=== PATIENT | female | born 1980 | race Two or more races ===

== ENCOUNTER 2016-06-10 23:06 | Emergency (ER) | payer SELFPAY ==
[2016-06-10 23:36] VITALS: BP 106/70
[2016-06-10] MEDS ORDERED: Cephalexin 250 MG Cap PO ONE (23:57)
--- NOTE | 2016-06-11 01:52 | ER ---
DATE SEEN: 06/10/2016 TIME SEEN: The patient was seen at 0340 hours. CHIEF COMPLAINT: Abdominal discomfort. HISTORY OF PRESENT ILLNESS: This 35-year-old woman noted she has onset of right flank discomfort, suprapubic discomfort without fever on 06/09/2016. No associated nausea, vomiting, diarrhea, constipation, fever, uterine tenderness, pelvic pain, dyspareunia, vaginal discharge, or thoughts of having sexually transmitted disease. Denies vaginal discharge. She is a 2, para 2-0-0- 2. Last menstrual period a month ago. Has a "T" IUD in place. The patient is single and not . She is here with her children. REVIEW OF SYSTEMS: Otherwise, negative. PHYSICAL EXAMINATION: VITAL SIGNS: Blood pressure 106/70, heart rate 82 and regular, respirations 20, oxygen saturation 99%, temperature is 36.3 degrees centigrade. The patient is in discomfort. HEENT: PERRLA intact. Pharynx without abnormality. LUNGS: Clear to auscultation. HEART: S1, S2. No murmur. Regular rate and rhythm. ABDOMEN: Soft. Moderate suprapubic discomfort. No guarding or rebound. Pelvic not performed. On her mons and hair follicle, there is an abscess which is very tender. It is slightly erythematous and raised. EXTREMITIES: Without abnormality. LABORATORY DATA: Urinalysis is normal. ASSESSMENT: Mons abscess. PLAN: Treat with Keflex 500 mg t.i.d. plus yogurt daily for 10 days. Follow up with doctor in 7 to 14 days. Hot moist packs at least 4 times a day, preferably every 1 to 2 hours to accelerate the resolution of the infection. DIFFERENTIAL DIAGNOSIS: Doubt donovanosis or Haemophilus ducreyi or bubo. Doubt sexually transmitted disease. /[id number] KENRICK/ANTONIO
== END 2016-06-11 00:05 | disposition home or self-care (01) ==
LOC: FB.ED 23:06
DX: N76.4 Abscess of vulva (principal)
CPT/HCPCS: 81001; 99283; A9270

== ENCOUNTER 2016-09-06 23:22 | Emergency (ER) | payer BC ==
[2016-09-07] MEDS ORDERED: Metoclopramide 10 MG/2 ML SDV IM ONE (00:19)
[2016-09-07] MEDS ORDERED: HYDROmorphone 2 MG/ML SDV IM ONE (00:19)
[2016-09-07 01:03] VITALS: BP 111/68
--- NOTE | 2016-09-12 09:43 | ER ---
DATE SEEN: 09/06/2016 TIME SEEN: The patient was seen at 0040 hours. HISTORY OF PRESENT ILLNESS: This 35-year-old, 4, para 4-0-0-4 single mother comes in with another friend this evening because she has pain from her fibroids. Surgery is scheduled for 09/12/2016, six days from now. The pain is so extensive this evening she could not tolerate it. Consequently, she came to the hospital for further care and intervention. She has been prescribed hydrocodone, but the hydrocodone, one tablet, causes nausea, makes her dizzy, and lightheaded, and she dislikes the feeling she has with it. She rates the pain at 8/10 intensity. She denies fever, vaginal bleeding, dysuria, back pain. Most of the pain is suprapubic. PAST MEDICAL HISTORY: No diabetes, heart disease, high blood pressure, asthma, or other serious illness. The patient denies headache, nausea, vomiting, or diarrhea. No other serious illnesses. REVIEW OF SYSTEMS: Negative except for noted above. PHYSICAL EXAMINATION: VITAL SIGNS: Blood pressure 105/75, heart rate 77, respirations 16, oxygen saturation 100%, temperature is 37.3 degrees centigrade. GENERAL: The patient is in distress. She has had interpreting done by her friend. HEENT: PERRLA intact. Pharynx without abnormality. NECK: Supple. No thyromegaly. LUNGS: Clear to auscultation. HEART: S1 and S2. No murmur. ABDOMEN: Soft. Mild suprapubic discomfort. No masses palpable. No CVA or percussion tenderness. PELVIC: Exam not performed. The patient is not experiencing vaginal bleeding. EXTREMITIES: Lower extremities without abnormality. Deep tendon reflexes normoactive. NEUROLOGIC: Cranial nerves II through XII intact. ASSESSMENT: Intrauterine fibroid pain. Neuropathic pain (pressure on nerve fibers). Also, a component of nociceptive pain (pain on tissue endings). PLAN: 1. Take half a tablet of hydrocodone for pain. If this does not work, then consider initiating 50 mg of Lyrica b.i.d. and increase to t.i.d. as needed. The patient has been informed that this is very expensive medicine. 2. Instead of using Zofran, change to Reglan. The Reglan has a dopamine antagonist which also works as an analgesic and antinausea medicine. Forego using Zofran. 3. Follow up with doctor for surgery as noted. She was advised not to take tramadol as it could affect her preoperative status and platelets. No laboratory tests were performed. /[id number] KENRICK/HARDIKL
== END 2016-09-07 01:05 | disposition home or self-care (01) ==
LOC: FB.ED 23:22
DX: D25.9 Leiomyoma of uterus, unspecified (principal); M79.2 Neuralgia and neuritis, unspecified
CPT/HCPCS: 96372; 99283; J1170; J2765

== ENCOUNTER 2016-10-01 00:16 | Emergency (ER) | payer BC ==
[2016-10-01] MEDS ORDERED: HYDROmorphone 2 MG/ML SDV IVPUSH ONE (00:30)
[2016-10-01] MEDS: Sodium Chloride 0.9% 10 ML Syringe FLUSH PRN ×3 (00:40→02:04)
[2016-10-01] MEDS ORDERED: Iopamidol 755 Mg/ML 100 ML Bottle IV SCH (01:00)
[2016-10-01] MEDS ORDERED: Ketorolac 30 MG/ML SDV IVPUSH ONE (01:55)
--- NOTE | 2016-10-01 02:01 | EDM.PDOC ---
ED HPI GENERAL MEDICAL PROBLEM - General Chief Complaint: Abdominal Pain Stated Complaint: ABD PAIN Time Seen by Provider: 10/01/16 01:35 Source of Information: Reports: Patient History Limitations: Reports: No Limitations - History of Present Illness INITIAL COMMENTS - FREE TEXT/NARRATIVE: 35 yo female had a hysterectomy 2 weeks ago in [place]. Tonight about [place] she fell in the shower and now complains of 10/10 abdominal pain. No postural dizziness. No recent fevers. Onset: Today Onset Date: 10/01/16 Onset Time: 00:00 Duration: Minutes: Location: Reports: Abdomen Quality: Reports: Sharp Severity: Severe Improves with: Reports: None Worsens with: Reports: None Context: Reports: Other (surgery 2 weeks ago, fell tonight.) Associated Symptoms: Reports: No Other Symptoms Treatments APPLICATION DESIGNER: Reports: Other (see below) (none) Lower Abdomen Pain Score (Numeric/FACES): 10 - Related Data Allergies Allergy/AdvReac Type Severity Reaction Status Date / Time No Known Allergies Allergy Verified 10/01/16 00:31 Home Meds: Home Meds . 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, Other OB/BYN History: scheduled for surgery in [place] - Infectious Disease History Infectious Disease History: Reports: Hepatitis C - Past Surgical History Female Surgical History: Reports: Hysterectomy Social & Family History - Tobacco Use Smoking Status *Q: Never Smoker Second Hand Smoke Exposure: No - Caffeine Use Caffeine Use: Reports: None - Recreational Drug Use Recreational Drug Use: No ED ROS GENERAL - Review of Systems Review Of Systems: See Below Constitutional: Reports: No Symptoms HEENT: Reports: No Symptoms Respiratory: Reports: No Symptoms Cardiovascular: Reports: No Symptoms GI/Abdominal: Reports: Abdominal Pain : Reports: No Symptoms Musculoskeletal: Reports: No Symptoms Skin: Reports: No Symptoms Neurological: Reports: No Symptoms ED EXAM, GI/ABD - Physical Exam Exam: See Below Exam Limited By: No Limitations General Appearance: Alert, WD/WN, No Apparent Distress Eyes: Bilateral: Normal Appearance Ears: Normal External Exam, Normal Canal, Hearing Grossly Normal Nose: Normal Inspection, Normal Mucosa, No Blood Throat/Mouth: Normal Inspection, Normal Lips, Normal Voice, No Airway Compromise Head: Atraumatic, Normocephalic Neck: Normal Inspection Respiratory/Chest: No Respiratory Distress, Lungs Clear, Normal Breath Sounds, No Accessory Muscle Use Cardiovascular: Regular Rate, Rhythm, No Edema GI/Abdominal Exam: Soft, No Distention, Tender Back Exam: Normal Inspection. No: CVA Tenderness (R), CVA Tenderness (L) Extremities: Normal Inspection, Normal Range of Motion, Non-Tender, No Pedal Edema Neurological: Alert, Oriented, CN II-XII Intact, No Motor/Sensory Deficits Psychiatric: Normal Affect, Normal Mood Skin Exam: Warm, Dry, Intact, Normal Color, No Rash Lymphatic: No Adenopathy Course - Vital Signs Last Recorded V/S: Last Vital Signs Temp 36.9 C 10/01/16 00:43 Pulse 71 10/01/16 00:43 Resp 18 10/01/16 00:43 BP 109/74 10/01/16 00:43 Pulse Ox 100 10/01/16 00:43 - Orders/Labs/Meds Orders: Active Orders 24 hr Category Date Time Status Abdomen Pelvis w wo Cont [CT] Stat Exams 10/01/16 00:28 Ordered Iopamidol [Isovue-370 (76%)] Med 10/01/16 01:00 Active 100 ml IV . DIRECTED Ketorolac [Toradol] Med 10/01/16 01:55 Once 30 mg IVPUSH ONETIME ONE Sodium Chloride 0.9% [Saline Flush] Med 10/01/16 00:31 Active 10 ml FLUSH ASDIRECTED PRN Saline Lock Insert [OM.PC] Routine Oth 10/01/16 00:31 Ordered Medication Orders Iopamidol (Isovue-370 (76%)) 100 ml IV . DIRECTED [facility] Ketorolac Tromethamine (Toradol) 30 mg IVPUSH ONETIME ONE Stop: 10/01/16 01:56 Sodium Chloride (Saline Flush) 10 ml FLUSH ASDIRECTED PRN PRN Reason: Keep Vein Open Last Admin: 10/01/16 00:42 Dose: 10 ml Admin: 10/01/16 00:40 Dose: 10 ml Meds: Medications Generic Name Dose Route Start Last Admin Trade Name Freq PRN Reason Stop Dose Admin Iopamidol 100 ml 10/01/16 01:00 Isovue-370 (76%) IV . DIRECTED [facility] Ketorolac Tromethamine 30 mg 10/01/16 01:55 Toradol IVPUSH 10/01/16 01:56 ONETIME ONE Sodium Chloride 10 ml 10/01/16 00:31 10/01/16 00:42 Saline Flush FLUSH 10 ml ASDIRECTED PRN Administration Keep Vein Open Discontinued Medications Generic Name Dose Route Start Last Admin Trade Name Jonoq PRN Reason Stop Dose Admin Hydromorphone HCl 1 mg 10/01/16 00:30 10/01/16 00:38 Dilaudid IVPUSH 10/01/16 00:31 1 mg ONETIME ONE Administration - Radiology Interpretation Free Text/Narrative:: No acute findings. CT Results Date: 10/01/16 Departure - Departure Time of Disposition: 02:10 Disposition: Home, Self-Care 01 Condition: Good Clinical Impression: Postoperative generalized abdominal pain - Discharge Information Referrals: Asad Contreras MD [Primary Care Provider] - Forms: ED Department Discharge Additional Instructions: See your doctor for recheck if your pain continues. May take acetaminophen and/ or ibuprofen as needed for pain relief. - My Orders Last 24 Hours: My Active Orders 10/01/16 00:28 Abdomen Pelvis w wo Cont [CT] Stat 10/01/16 00:31 Sodium Chloride 0.9% [Saline Flush] 10 ml FLUSH ASDIRECTED PRN Saline Lock Insert [OM.PC] Routine 10/01/16 01:00 Iopamidol [Isovue-370 (76%)] 100 ml IV . DIRECTED 10/01/16 01:55 Ketorolac [Toradol] 30 mg IVPUSH ONETIME ONE - Assessment/Plan Last 24 Hours: My Active Orders 10/01/16 00:28 Abdomen Pelvis w wo Cont [CT] Stat 10/01/16 00:31 Sodium Chloride 0.9% [Saline Flush] 10 ml FLUSH ASDIRECTED PRN Saline Lock Insert [OM.PC] Routine 10/01/16 01:00 Iopamidol [Isovue-370 (76%)] 100 ml IV . DIRECTED 10/01/16 01:55 Ketorolac [Toradol] 30 mg IVPUSH ONETIME ONE
[2016-10-01 02:10] VITALS: BP 108/72
[2016-10-02] MEDS ORDERED: Iopamidol 755 Mg/ML 100 ML Bottle IV SCH ×2 (14:00→14:03)
== END 2016-10-01 02:10 | disposition home or self-care (01) ==
LOC: FB.ED 00:16
DX: G89.18 Other acute postprocedural pain (principal); R10.84 Generalized abdominal pain; Z90.710 Acquired absence of both cervix and uterus
CPT/HCPCS: 74177; 96374; 96375; 99285; J1170; J1885; J7050; Q9967; 74178

== ENCOUNTER 2016-11-11 19:45 | Emergency (ER) | payer BC ==
[2016-11-11] MEDS ORDERED: Ketorolac 60 MG/2 ML SDV IM ONE (20:39)
--- NOTE | 2016-11-11 20:50 | EDM.PDOC ---
ED HPI GENERAL MEDICAL PROBLEM - General Chief Complaint: Upper Extremity Injury/Pain Stated Complaint: PAIN ON LT HAND Time Seen by Provider: 11/11/16 19:54 Source of Information: Reports: Patient, Family History Limitations: Reports: Language Barrier - History of Present Illness INITIAL COMMENTS - FREE TEXT/NARRATIVE: 35 years old w f came to the ed due to pain at her right hand, mainly her thump. Pt has FROM. 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 No N/V/D or any other acute medical issues. 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 Left Hand Pain Score (Numeric/FACES): 10 - Related Data Allergies Allergy/AdvReac Type Severity Reaction Status Date / Time No Known Allergies Allergy Verified 11/11/16 19:53 Home Meds: Home Meds NK [No Known Home Meds] 11/11/16 [History] Past Medical History - Past Health History Medical/Surgical History: Denies 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, Other OB/BYN History: scheduled for surgery in [place] - Infectious Disease History Infectious Disease History: Reports: Hepatitis C - Past Surgical History Female Surgical History: Reports: Hysterectomy Social & Family History - Tobacco Use Smoking Status *Q: Never Smoker Second Hand Smoke Exposure: No - Caffeine Use Caffeine Use: Reports: None - Recreational Drug Use Recreational Drug Use: No Review of Systems - Review of Systems Review Of Systems: See Below Constitutional: Reports: No Symptoms Eyes: Reports: No Symptoms Ears: Reports: No Symptoms Nose: Reports: No Symptoms Mouth/Throat: Reports: No Symptoms Respiratory: Reports: No Symptoms Cardiovascular: Reports: No Symptoms GI/Abdominal: Reports: No Symptoms Genitourinary: Reports: No Symptoms Musculoskeletal: Reports: Hand Pain Skin: Reports: No Symptoms Neurological: Reports: No Symptoms Psychiatric: Reports: No Symptoms ED EXAM, GENERAL - Physical Exam Exam: See Below Exam Limited By: No Limitations General Appearance: Alert, WD/WN, Mild Distress Eye Exam: Bilateral Eye: Normal Inspection Ears: Normal External Exam Ear Exam: Bilateral Ear: Auricle Normal Nose: Normal Inspection Throat/Mouth: Normal Inspection Head: Atraumatic, Normocephalic Neck: Normal Inspection, Supple Respiratory/Chest: No Respiratory Distress, Lungs Clear Cardiovascular: Normal Peripheral Pulses, Regular Rate, Rhythm, No Edema, No JVD , No Murmur, No Rub Peripheral Pulses: 1+: Femoral (L), Femoral (R) GI/Abdominal: Normal Bowel Sounds (Female) Exam: Deferred Rectal (Female) Exam: Deferred Back Exam: Normal Inspection, Full Range of Motion Extremities: Normal Inspection, Normal Range of Motion, Other (tender left hand , FROM) Course - Vital Signs Text/Narrative:: 35 years old w f came to the ed due to pain at her right hand, mainly her thump. Pt has FROM. 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 No N/V/D or any other acute medical issues. PE: Tender right hypertenar, FROM Impression: Muscular pain r hand Tx: Ice, Toradol Reexam: Improved Plan: D/C with instructions Last Recorded V/S: Last Vital Signs Temp 36.6 C 11/11/16 19:54 Pulse 73 11/11/16 21:05 Resp 18 11/11/16 19:54 BP 105/75 11/11/16 21:05 Pulse Ox 100 11/11/16 19:54 - Orders/Labs/Meds Orders: Active Orders 24 hr Category Date Time Status Cooling Warming Measures [RC] ASDIRECTED Care 11/11/16 20:39 Active Ice Bag [Ice Therapy] [OM.PC] Routine Oth 11/11/16 20:39 Ordered Meds: Medications Discontinued Medications Generic Name Dose Route Start Last Admin Trade Name Freq PRN Reason Stop Dose Admin Ketorolac Tromethamine 60 mg 11/11/16 20:39 11/11/16 20:42 Toradol IM 11/11/16 20:40 60 mg ONETIME ONE Administration Departure - Departure Time of Disposition: 20:50 Disposition: Home, Self-Care 01 Condition: Good Clinical Impression: Sprain of hand, left Qualifiers: Encounter type: initial encounter Qualified Code(s): S63.92XA - Sprain of unspecified part of left wrist and hand, initial encounter Insomnia Qualifiers: Insomnia type: unspecified Qualified Code(s): G47.00 - Insomnia, unspecified - Discharge Information Referrals: Asad Contreras MD [Primary Care Provider] - Forms: ED Department Discharge Additional Instructions: Please take 600mg of motrin every 6-8 hours with food, please apply ice to your left hand every 20 min off/on, please change job situation if needed, please take benadryl for sleep induction, please f/u, please come back if your symptoms get worse acutely - My Orders Last 24 Hours: My Active Orders 11/11/16 20:39 Cooling Warming Measures [RC] ASDIRECTED Ice Bag [Ice Therapy] [OM.PC] Routine - Assessment/Plan Last 24 Hours: My Active Orders 11/11/16 20:39 Cooling Warming Measures [RC] ASDIRECTED Ice Bag [Ice Therapy] [OM.PC] Routine
[2016-11-11 21:10] VITALS: BP 105/75
== END 2016-11-11 21:05 | disposition home or self-care (01) ==
LOC: FB.ED 19:45
DX: S63.92XA Sprain of unspecified part of left wrist and hand, initial encounter (principal); G47.00 Insomnia, unspecified; Z86.19 Personal history of other infectious and parasitic diseases; Z90.710 Acquired absence of both cervix and uterus; X58.XXXA Exposure to other specified factors, initial encounter
CPT/HCPCS: 96372; 99282; J1885

== ENCOUNTER 2016-11-27 19:28 | Emergency (ER) | payer BC ==
[2016-11-27] MEDS ORDERED: Sodium Chloride 0.9% 1,000 ML IV ONE (20:36)
[2016-11-27] MEDS ORDERED: Pantoprazole 40 MG Vial IVPUSH ONE (20:36)
[2016-11-27] MEDS ORDERED: Ketorolac 30 MG/ML SDV IVPUSH ONE (20:36)
[2016-11-27] MEDS ORDERED: Ondansetron 4 MG Tab.DIS PO ONE (21:11)
[2016-11-27] MEDS ORDERED: Sodium Chloride 0.9% 10 ML Syringe FLUSH PRN (21:25)
[2016-11-27] MEDS ORDERED: Dicyclomine 10 MG Cap PO ONE (22:24)
[2016-11-27 22:26] VITALS: BP 93/56
--- NOTE | 2016-11-27 22:40 | EDM.PDOC ---
ED HPI GENERAL MEDICAL PROBLEM - General Chief Complaint: Abdominal Pain Stated Complaint: STOMACH PAIN Time Seen by Provider: 11/27/16 22:15 Source of Information: Reports: Patient, Old Records, Other (Dr. Chatman) History Limitations: Reports: No Limitations - History of Present Illness INITIAL COMMENTS - FREE TEXT/NARRATIVE: 35 yo female presented with several episodes of diarrhea, abdominal pain and one emesis. She was seen and worked up by Dr. Chatman who asked me to follow up on her outstanding CT scan results. Onset: Today Onset Date: 11/27/16 Duration: Hour(s): Location: Reports: Abdomen Quality: Reports: Other (crampy) Severity: Moderate Improves with: Reports: None Worsens with: Reports: None Context: Reports: Other (? viral illness) Associated Symptoms: Reports: Loss of Appetite, Nausea/Vomiting. Denies: Fever/ Chills Treatments STUDIO HAND: Reports: Other (see below) (none) Lower Abdomen Pain Score (Numeric/FACES): 8 - Related Data Allergies Allergy/AdvReac Type Severity Reaction Status Date / Time No Known Allergies Allergy Verified 11/27/16 19:44 Home Meds: Home Meds Dicyclomine [Bentyl] 20 mg PO QIDACANDBED #14 tablet 11/27/16 [Rx] Ondansetron [Zofran ODT] 4 mg PO Q6H PRN #7 tab.dis 11/27/16 [Rx] Past Medical History - Past Health History Medical/Surgical History: Denies Medical/Surgical History [employer] History: Reports: Fibroids, Other OB/BYN History: scheduled for surgery in [place] - Infectious Disease History Infectious Disease History: Reports: None - Past Surgical History Female Surgical History: Reports: Hysterectomy Social & Family History - Family History Family Medical History: Noncontributory - Tobacco Use Smoking Status *Q: Never Smoker Second Hand Smoke Exposure: No - Caffeine Use Caffeine Use: Reports: None - Recreational Drug Use Recreational Drug Use: No ED ROS GENERAL - Review of Systems Review Of Systems: See Below Constitutional: Reports: No Symptoms HEENT: Reports: No Symptoms Respiratory: Reports: No Symptoms Cardiovascular: Reports: No Symptoms GI/Abdominal: Reports: Abdominal Pain, Anorexia, Diarrhea, Decreased Appetite, Nausea, Vomiting. Denies: Black Stool, Bloody Stool, Constipation, Difficulty Swallowing, Distension, Hematemesis, Hematochezia, Melena : Reports: No Symptoms Musculoskeletal: Reports: No Symptoms Skin: Reports: No Symptoms Neurological: Reports: No Symptoms ED EXAM, GI/ABD - Physical Exam Exam: See Below Exam Limited By: No Limitations General Appearance: Alert, WD/WN, No Apparent Distress Eyes: Bilateral: Normal Appearance Ears: Normal External Exam, Normal Canal, Hearing Grossly Normal Nose: Normal Inspection, Normal Mucosa, No Blood Throat/Mouth: Normal Inspection, Normal Lips Head: Atraumatic, Normocephalic Neck: Normal Inspection Respiratory/Chest: No Respiratory Distress, Lungs Clear, Normal Breath Sounds, No Accessory Muscle Use Cardiovascular: Regular Rate, Rhythm, No Edema GI/Abdominal Exam: Normal Bowel Sounds, Soft, No Distention, No Mass, Tender Back Exam: Normal Inspection, Full Range of Motion. No: CVA Tenderness (R), CVA Tenderness (L) Extremities: Normal Inspection, Normal Range of Motion, Non-Tender, No Pedal Edema Neurological: Alert, Oriented, CN II-XII Intact, Normal Cognition, No Motor/ Sensory Deficits Psychiatric: Normal Affect, Normal Mood Skin Exam: Warm, Dry, Intact, Normal Color, No Rash Lymphatic: No Adenopathy Course - Vital Signs Last Recorded V/S: Last Vital Signs Temp 36.6 C 11/27/16 22:00 Pulse 66 11/27/16 22:00 Resp 18 11/27/16 22:00 BP 93/56 L 11/27/16 22:00 Pulse Ox 100 11/27/16 22:00 - Orders/Labs/Meds Orders: Active Orders 24 hr Category Date Time Status Abdomen Pelvis wo Cont [CT] Stat Exams 11/27/16 20:32 Taken CHLAMYDIA,AND GC BY APTIMA Routine Lab 11/27/16 19:46 Received Sodium Chloride 0.9% [Saline Flush] Med 11/27/16 21:25 Active 10 ml FLUSH ASDIRECTED PRN Saline Lock Insert [OM.PC] Routine Oth 11/27/16 21:25 Ordered Medication Orders Sodium Chloride (Saline Flush) 10 ml FLUSH ASDIRECTED PRN PRN Reason: Keep Vein Open Last Admin: 11/27/16 21:26 Dose: 10 ml Labs: Laboratory Tests 11/27/16 11/27/16 11/27/16 Range/Units 19:46 20:35 20:35 WBC 6.5 (4.5-12.0) X10-3/uL RBC 4.52 (3.23-5.20) x10(6)uL Hgb 13.8 (11.5-15.5) g/dL Hct 41.1 (30.0-51.3) % MCV 91.0 (80-96) fL MCH 30.6 (27.7-33.6) pg MCHC 33.6 (32.2-35.4) g/dL RDW 13.0 (11.5-15.5) % Plt Count 236 (125-369) X10(3)uL MPV 7.9 (7.4-10.4) fL Neut % (Auto) 58.7 (46-82) % Lymph % (Auto) 31.0 (13-37) % [place] % (Auto) 8.4 (4-12) % Eos % (Auto) 1 (1.0-5.0) % Baso % (Auto) 1 (0-2) % Neut # (Auto) 3.8 (1.6-8.3) # Lymph # (Auto) 2.0 (0.6-5.0) # [place] # (Auto) 0.5 (0.0-1.3) # Eos # (Auto) 0.1 (0.0-0.8) # Baso # (Auto) 0.0 (0.0-0.2) # Sodium 134 L (135-145) mmol/L Potassium 3.4 L (3.5-5.3) mmol/L Chloride 100 (100-110) mmol/L Carbon Dioxide 28 (23-29) mmol/L BUN 19 (5-20) mg/dL Creatinine 0.5 L (0.6-1.3) mg/dL Est Cr Clr Drug Dosing 119.63 mL/min Estimated GFR (MDRD) > 60 (>60) BUN/Creatinine Ratio 38.0 H (9-20) Glucose 91 (80-116) mg/dL Calcium 8.8 (8.6-10.2) mg/dL Total Bilirubin 0.5 (0.1-1.3) mg/dL AST 16 (5-27) IU/L ALT 14 D (14-26) IU/L Alkaline Phosphatase 45 L (56-112) IU/L Total Protein 6.8 (6.0-8.0) g/dL Albumin 3.9 (3.5-5.2) g/dL Globulin 2.9 g/dL Albumin/Globulin Ratio 1.3 Amylase (28-100) U/L Urine Color Yellow (YELLOW) Urine Appearance Clear (CLEAR) Urine pH 7.0 H (5.0-6.5) Ur Specific [place] 1.015 (1.010-1.025) Urine Protein Negative (NEGATIVE) mg/dL Urine Glucose (UA) Normal (NEGATIVE) mg/dL Urine Ketones Negative (NEGATIVE) mg/dL Urine Occult Blood Negative (NEGATIVE) Urine Nitrite Negative (NEGATIVE) Urine Bilirubin Negative (NEGATIVE) Urine Urobilinogen Normal (NEGATIVE) mg/dL Ur Leukocyte Esterase Moderate H (NEGATIVE) Urine RBC 0-5 (0) Urine WBC 0-5 (0) Ur Squamous Epith Cells Few H (NS,R,O) Urine Bacteria Few H (NS) 11/27/16 Range/Units 20:35 WBC (4.5-12.0) X10-3/uL RBC (3.23-5.20) x10(6)uL Hgb (11.5-15.5) g/dL Hct (30.0-51.3) % MCV (80-96) fL MCH (27.7-33.6) pg MCHC (32.2-35.4) g/dL RDW (11.5-15.5) % Plt Count (125-369) X10(3)uL MPV (7.4-10.4) fL Neut % (Auto) (46-82) % Lymph % (Auto) (13-37) % [place] % (Auto) (4-12) % Eos % (Auto) (1.0-5.0) % Baso % (Auto) (0-2) % Neut # (Auto) (1.6-8.3) # Lymph # (Auto) (0.6-5.0) # [place] # (Auto) (0.0-1.3) # Eos # (Auto) (0.0-0.8) # Baso # (Auto) (0.0-0.2) # Sodium (135-145) mmol/L Potassium (3.5-5.3) mmol/L Chloride (100-110) mmol/L Carbon Dioxide (23-29) mmol/L BUN (5-20) mg/dL Creatinine (0.6-1.3) mg/dL Est Cr Clr Drug Dosing mL/min Estimated GFR (MDRD) (>60) BUN/Creatinine Ratio (9-20) Glucose (80-116) mg/dL Calcium (8.6-10.2) mg/dL Total Bilirubin (0.1-1.3) mg/dL AST (5-27) IU/L ALT (14-26) IU/L Alkaline Phosphatase (56-112) IU/L Total Protein (6.0-8.0) g/dL Albumin (3.5-5.2) g/dL Globulin g/dL Albumin/Globulin Ratio Amylase 113 H (28-100) U/L Urine Color (YELLOW) Urine Appearance (CLEAR) Urine pH (5.0-6.5) Ur Specific [place] (1.010-1.025) Urine Protein (NEGATIVE) mg/dL Urine Glucose (UA) (NEGATIVE) mg/dL Urine Ketones (NEGATIVE) mg/dL Urine Occult Blood (NEGATIVE) Urine Nitrite (NEGATIVE) Urine Bilirubin (NEGATIVE) Urine Urobilinogen (NEGATIVE) mg/dL Ur Leukocyte Esterase (NEGATIVE) Urine RBC (0) Urine WBC (0) Ur Squamous Epith Cells (NS,R,O) Urine Bacteria (NS) Meds: Medications Generic Name Dose Route Start Last Admin Trade Name Bahman PRN Reason Stop Dose Admin Sodium Chloride 10 ml 11/27/16 21:25 11/27/16 21:26 Saline Flush FLUSH 10 ml ASDIRECTED PRN Administration Keep Vein Open Discontinued Medications Generic Name Dose Route Start Last Admin Trade Name Fremaurilio PRN Reason Stop Dose Admin Dicyclomine HCl 20 mg 11/27/16 22:24 11/27/16 22:27 Bentyl PO 11/27/16 22:25 20 mg ONETIME ONE Administration Sodium Chloride 1,000 mls @ 999 mls/hr 11/27/16 20:36 11/27/16 21:27 Normal Saline IV 11/27/16 21:36 999 mls/hr .BOLUS ONE Administration Ketorolac Tromethamine 30 mg 11/27/16 20:36 11/27/16 21:28 Toradol IVPUSH 11/27/16 20:37 30 mg ONETIME ONE Administration Ondansetron HCl 4 mg 11/27/16 21:11 11/27/16 21:36 Zofran Odt PO 11/27/16 21:12 4 mg ONETIME ONE Administration Pantoprazole Sodium 40 mg 11/27/16 20:36 11/27/16 21:30 Protonix Iv IVPUSH 11/27/16 20:37 40 mg ONETIME ONE Administration - Radiology Interpretation Free Text/Narrative:: No pathology noted on abdominal CT exam. CT Results Date: 11/27/16 CT Results Time: 22:30 Departure - Departure Time of Disposition: 22:40 Disposition: Home, Self-Care 01 Condition: Fair Clinical Impression: Gastroenteritis - Discharge Information Prescriptions: Dicyclomine [Bentyl] 20 mg PO QIDACANDBED #14 tablet Ondansetron [Zofran ODT] 4 mg PO Q6H PRN #7 tab.dis PRN Reason: Nausea Referrals: Asad Contreras MD [Primary Care Provider] - Forms: ED Department Discharge Additional Instructions: Clear liquid diet until vomiting and nausea are gone. Then advance to a BRAT diet until no diarrhea. Take Zofran as directed for nausea. Take dicyclomine as directed for diarrhea and abdominal pain. Take acetaminophen 1000 mg every 6 hrs for pain relief. Rest. Recheck with your doctor before the weekend if symptoms persist.
--- NOTE | 2016-11-28 15:19 | ER ---
DATE SEEN: 11/27/2016 TIME SEEN: 1930 hours. HISTORY OF PRESENT ILLNESS: This 35-year-old, who lives with her significant other for 14 years, 3, para 3-0-0-3, status post hysterectomy for fibroma (fibroids), who presents with a new 10/10 abdominal discomfort, mostly supraumbilical and also suprapubic. She notes she vomited today after eating watermelon, approximately an hour ago. She has anorexia, has not been eating for the last 2 days with decreased p.o. intake. She notes "poor intake." Diarrhea x10 yesterday and today. No history of traveling. She feels weak and tired and states she has a low hemoglobin. Other history, no history of appendectomy or oophorectomy. She still has her ovaries. She notes she has dysuria with frequency, urgency, and burning with passing urine. No gastrointestinal symptoms of blood in her stool or black tarry stool. She has only vomited with meals. She works at [employer], and the last time she worked was approximately 2 weeks ago. She had "a hemoglobin at that time, at [employer], that she was told it was low." She describes the pain as three days' duration, pressure-like, and sometimes knife-like. Her friend is her historical interpreter. ALLERGIES: No allergies. MEDICATIONS: None. PAST MEDICAL HISTORY: History of insomnia and postop status, hysterectomy pain. No diabetes, no heart disease, no high blood pressure, no asthma. No history of trauma. Denies back pain. REVIEW OF SYSTEMS: HEENT: Negative. No recent sore throat. No congestion or sinusitis. CARDIORESPIRATORY: No shortness of breath. No cough. No chest pain. No irregularity of heartbeat or syncope, near syncope, or neck or arm pain. ABDOMEN: As noted above. No history of GERD or ulcers, phlebitis or pancreatitis or abdominal trauma. PELVIC: No history of STD or vaginal discharge. She does have frequency, urgency, and dysuria. MUSCULOSKELETAL: No leg pain. No joint pain. NEUROLOGIC: No history of seizures. PHYSICAL EXAMINATION: VITAL SIGNS: Blood pressure 105/60, heart rate 80, respirations 18, oxygen saturation 98%. GENERAL: The patient is lying on her inside. Her body language suggests she has a lot of pain. HEENT: PERRLA intact. Pharynx without abnormality. Mouth is moist. NECK: No cervical adenopathy, thyromegaly, or masses in the neck. LUNGS: Clear to auscultation without rales, rhonchi, or wheezes. No chest wall discomfort. HEART: S1, S2. No irregular rate or rhythm. No S3, no S4. ABDOMEN: Soft. Mild guarding. Umbilicus to xiphoid, more close to the supraumbilical area and also suprapubic area. No rebound. No heel tap rebound. There is mild right CVA discomfort. With permission and with nurse in the room, pelvic was performed and also inspection of the cervix and the vagina, did not extravasate discharge. No odor noted. Cervical tissue and vaginal tissue with normal appearance. Once the speculum was removed, a bimanual examination demonstrated the absence of the uterus. She put pressure on the sidewalls of the vagina as a "control measure", and she had more pain than would be suspected, (allodynia), both sides demonstrated this. No adnexal masses. Rectovaginal exam is negative. No uterine enlargement. LABORATORY FINDINGS: White count 6,400, PMNs 59, lymphocytes 31, monocytes 8, platelets 236,000, hemoglobin 13.8. A complete metabolic panel, hyponatremia and hypokalemia noted, sodium 134, potassium 3.4. Normal chloride, normal CO2; 100 chloride and CO2 28. BUN 19, creatinine 0.5, GFR greater than 60. BUN and creatinine ratio greater than 38 (this reflects dehydration). Alkaline phosphatase is normal. Amylase slightly elevated at 113. Normal level of amylase is 28-100. The patient's urinalysis is normal, except for a few bacteria, few squamous cells, and moderate LES. No RBCs. Specific gravity 1.015, pH 7.0. ASSESSMENT: 1. Abdominal pain, etiology indeterminate, rule out enteritis, food-borne illness. 2. No recent antibiotic use, without Clostridium difficile. 3. Suprapubic pain, etiology indeterminate. She has an absent uterus. No suggestion of sexually transmitted disease, GC, or chlamydia. Plan to do a urine culture for urethritis she experienced with the frequency, urgency, and dysuria, but that is unlikely as the urinalysis is negative. 4. Doubt pelvic-inflammatory disease. 5. Status post hysterectomy for fibroids. 6. Elevated amylase, etiology indeterminate. Possible pancreatitis. She does not drink alcohol, so it is hard to know if this is a viv hunter finding or is reflective of other metabolic etiology. 7. CAT scan with IV contrast is planned. Additional diagnosis: There is high probability what I am seeing is a cultural thing and/or her personal response to pain. It is my impression that she has extensive allodynia - inappropriate pain response to minimal tactile stimulation. I have discussed the patient's case with Dr. Eden. The patient has received 40 mg of Protonix and also 30 mg of ketorolac - Toradol. It is counterintuitive to use anti-inflammatory with the proton inhibitor. I chose to do that. The amylase needs further workup at present. Clinically, she does not appear to have pancreatitis, however, await the CAT scan and no suggestion of recent antibiotic use to consider Clostridium difficile. I did not do a GI panel study, but if necessary in the future, it may be needed to delineate her symptoms. No suggestion of parasitism - no eosinophilia. /[id number] KENRICK/ANTONIO
== END 2016-11-27 22:40 | disposition home or self-care (01) ==
LOC: FB.ED 19:28
DX: K52.9 Noninfective gastroenteritis and colitis, unspecified (principal); Z90.710 Acquired absence of both cervix and uterus
CPT/HCPCS: 36415; 74176; 80053; 81001; 82150; 85025; 87491; 87591; 96361; 96374; 96375; 99284; A9270; C9113; J1885; J7040; J7050

== ENCOUNTER 2017-08-20 15:04 | Observation (INO) | payer SELFPAY ==
[2017-08-20] MEDS: Sodium Chloride 0.9% 1,000 ML IV SCH ×3 (15:10→22:59)
[2017-08-20] MEDS ORDERED: Sodium Chloride 0.9% 10 ML Syringe FLUSH PRN (15:11)
[2017-08-20] MEDS ORDERED: Activated Charcoal/Water Susp 50 GM/240 ML Tube PO ONE (15:18)
[2017-08-20] MEDS ORDERED: Activated Charcoal/Water Susp 50 GM/240 ML Tube ONE (15:21)
[2017-08-20 15:50] LABS: ACETAMINOPHEN < 2 ug/mL (10-30)
[2017-08-20] MEDS ORDERED: LORazepam 2 MG/ML SDV IV PRN (16:34)
[2017-08-20] MEDS ORDERED: Ondansetron 4 MG/2 ML SDV IV PRN (16:34)
--- NOTE | 2017-08-20 16:56 | ER ---
DATE SEEN: 08/20/2017 CHIEF COMPLAINT: NSAID overdose. HISTORY OF PRESENT ILLNESS: This is a 36-year-old female, , who presented with family because she had taken an overdose of ibuprofen. She states that she took almost a whole bottle of 200 mg of ibuprofen because she was arguing and fighting with the . In addition, she took some bupropion or Wellbutrin, but not sure how many tablets. She denies any prior suicidal ideation or attempt. She has a history of depression and anxiety that are usually stable, eating disorder that is stable, and insomnia that is well controlled. CURRENT MEDICATIONS: Reviewed. SOCIAL HISTORY: Does not smoke or drink. PHYSICAL EXAMINATION: VITAL SIGNS: Her blood pressure is normal, pulse is 88, and temperature 98.2. ENT: Negative. CHEST: Clear. MENTAL STATUS: Alert, with diminished speech. NEUROLOGIC: Alert and oriented x3. No focal findings. LABORATORY DATA: CBC and CMP negative. Salicylate and acetaminophen negative. IMPRESSION: 1. Nonsteroidal antiinflammatory drug toxicity. 2. Suicidal attempt. PLAN: IV fluids. We called Poison Control, and they suggested supportive therapy. Gave one dose of activated charcoal, and we will keep the patient on the monitor, watch for seizures, and observe overnight. /[id number] HARIKA/ANTONIO
[2017-08-20 21:59] LABS: ACETAMINOPHEN < 2 ug/mL (10-30)
[2017-08-21] MEDS: Sodium Chloride 0.9% 1,000 ML IV SCH (06:52)
[2017-08-21] MEDS ORDERED: Aluminum Hydroxide/Magnesium Hydroxide Susp 30 ML Cup PO PRN (09:22)
[2017-08-21] MEDS ORDERED: Famotidine 20 MG Tab PO SCH (10:00)
[2017-08-21 12:13] VITALS: BP 111/58
--- NOTE | 2017-08-21 12:21 | HP ---
ADMISSION DATE: 08/20/2017 REASON FOR VISIT: Suicide gesture. HISTORY OF PRESENT ILLNESS: Carmen Figueroa is a 36-year-old, [place]ic [place]yanese female, who was seen at [facility] ER on 08/20/2017, mid day. She presented with an acute event, self-harm issue, took half a bottle of 200 mg ibuprofen and an unknown amount of prescription of bupropion. No illness related symptoms shared with family. Consultation was obtained. While in the ER, she was given an appropriate activated charcoal. EKG and observation overnight strongly recommended. MEDICATIONS: Present daily medications include bupropion, dose unknown. PAST MEDICAL HISTORY: Significant for no previous operative procedures, hospitalizations, unusual childhood diseases, major injuries, or fractures. GYNECOLOGIC HISTORY: 2, para 2, female. SOCIAL HISTORY: Lives in [facility]. 29, in good health. Two boys, set of twins 12 and 12. Works at a local [employer]. Nonsmoker. No alcohol consumption. No illicit drug use. FAMILY HISTORY: Father in mid 50s live in [place]. Mother at 44 pancreatic cancer. One brother. No sisters. Negative for early heart disease, diabetes mellitus, or inheritable cancers. REVIEW OF SYSTEMS: CONSTITUTIONAL: Feeling okay this morning. EYES: Sees well. EARS: Hears well. OROPHARYNX: Intact dentition, no loose teeth. CHEST: No cough, wheeze, or congestion. CARDIOVASCULAR: Denies chest pain, palpitations, or syncope. GI: Mild GI upset. Bowels have been fine. No blood in stools. No blood in urine. : Normal voiding pattern. SKIN: No lesions, eruptions, masses, or moles. ENDOCRINE: No excessive thirst or urination. ALLERGIC: No chronic cough, wheeze, or congestion. PSYCHIATRIC: Mood stable. PHYSICAL EXAMINATION: VITAL SIGNS: Stable. 36.7, 63.5 kg, height 5.52 meters, blood pressure 104/70, 81 is the mean blood pressure, 76 is the pulse, 18 is the respirations, O2 saturation 100%. GENERAL: Very cooperative, conversant, speech dialect, little impaired. Appeared to understand conversations. HEENT: Funduscopic benign. Conjunctivae clear. Bright tympanic membranes. Clear nasal discharge. Mouth and oropharynx clear. Good dentition. Tongue midline. Good gag reflex. NECK: Benign. Thyroid small. No adenopathy. CHEST: Clear in all lung olsen. No adventitious sounds. HEART: Regular without ectopy or murmur. BREASTS: Deferred. ABDOMEN: Benign. No hepatosplenomegaly. No surgical scars. AND RECTAL: Deferred. LABORATORY STUDIES: CBC revealed white count 7100, hemoglobin 15.4, normal indices. Electrolytes x3 satisfactory with normal liver function tests. Urine was free of blood, did have a 30-40 white cells, moderate bacteria, culture to follow. Salicylate level was low. Tylenol level is low, less than two. Drug screen otherwise negative. Alcohol less than 0.03. ASSESSMENT: Acute intentional overdose; nonprescription ibuprofen; prescription bupropion. PLAN: Close observation overnight, appropriate indicated, monitor pattern has been satisfactory. We will consult Dr. Mendoza, Psychiatry for [id number], computer visit, complementary care, and well being, recommendations to follow. Strong consideration for inpatient care. /[id number] DAR/ANTONIO
--- NOTE | 2017-08-21 12:39 | DISCH ---
DISCHARGE DATE: 08/21/2017 HOSPITAL COURSE: Chuyita Figueroa is a 36-year-old [place] female, admitted yesterday for observation of intentional intake of ibuprofen, quantity not for certain, and moderate dose of Wellbutrin. She has been well medically. EKG patterns have been satisfactory; telementry has been satisfactory. Laboratory studies including electrolytes x3 have been without conflict. She was interviewed by Dr. Mendoza, in attendance. Believe that there was no serious health harm, homicide, harm to herself or others. No plan in place. Further discussion to take the medicine "just asleep deeply." Relationship with and twin boys appears to be good. Good support service with her mother- in-law. Grieving the loss of her mom at a very young age of pancreatic cancer. We will discharge home. Follow up in one week with Dr. Contreras. We will discharge home on Wellbutrin XL 300 mg one daily, with the addition of escitalopram 10 mg to complement. Psychology referral under consideration. Grief counseling under consideration. We will maintain her hospital stay until 1 O'clock as per recommendations of Poison Control. SURGICAL PROCEDURES: None. CONSULTATION: Dr. Mendoza. /[id number] /ANTONIO
--- NOTE | 2017-08-22 08:52 | CONS ---
DATE OF CONSULTATION: 08/21/2017 IDENTIFICATION: The patient is a 36-year-old female who was admitted to the inpatient medical unit at [facility] in [place], [place]. She was seen for psychiatric consultation. Her , Eliazar, is present for the inpatient consult and also participates in the interview. CHIEF COMPLAINT: "Because I took some pills." HISTORY OF PRESENT ILLNESS: The patient is a 36-year-old female who was originally brought in by her uncle to the [facility] ER with concerns that the patient had overdosed. Upon obtaining history, it was learned that the patient had overdosed on half a bottle of Wellbutrin that she had been prescribed by her outpatient care provider and some ibuprofen. She was charcoaled in the emergency room and then sent out to the Med/Surg unit for further stabilization and observation. She states that she had been doing well, but over the holidays became increasingly depressed as she was "thinking about my mom" who about 3 years ago quite suddenly secondary to pancreatic cancer. She states that this had made her very sad, and so she "took some pills." She states that at this point in time she is not suicidal any longer. She also denies any homicidal ideation. She denies any psychiatric symptoms, paranoid symptoms. She states what she would like to have happen is once she is medically stabilized is to be discharged back to home in the care of her as she and her have twin sons. She wants to be with her family. She states also the fact that they had moved to [place] from [place] also a few years back has sometimes weighed on the patient. She denies any previous depression. She denies any problems with illicit substance use except with alcohol use. She does state that she has been prescribed the Wellbutrin because she felt that she was getting agitated and worrying that she was eating too much and her regular doctor, Dr. Contreras, had prescribed her this medication. She states this helped her quite a bit. MEDICATIONS: At the time of admission: 1. Wellbutrin. 2. Zocor. 3. Bentyl. ALLERGIES: No known drug allergies. PAST MEDICAL HISTORY: The patient denies. REVIEW OF SYSTEMS: Negative for any acute difficulties or complications currently with the GI, , pulmonary, cardiac, endocrine, blood, immune systems, musculoskeletal, and nervous systems. FAMILY PSYCHIATRIC AND CD HISTORY: The patient denies. PAST PSYCHIATRIC AND CD HISTORY: The patient denies any previous psychiatric hospitalizations or chemical dependency treatments. She denies any previous suicide attempts or substance use behaviors. She denies any eating disorder history. Past psychiatric diagnosis appears to be clinical depression. Primary outpatient provider is Dr. Contreras. SOCIAL HISTORY: The patient was born in [place], and raised in [place]. Her mother is [place]. Her father is from [place]. She states that she has been in the current relationship for the past 14 years. It is unclear whether the patient and her partner are or not , as one states that they are , and the other states that they are not. On interview, however, they do acknowledge that they are together, and the patient's partner works for a local [employer] and the patient also works for a [employer]. They live together in [place], and they have two 12-year-old twin sons. The patient denies any current legal issues. She is Yazidism in terms of her eliezer. She enjoys exercise in her spare time. MENTAL STATUS EXAMINATION: The patient is a 36-year-old, soft-spoken female in no apparent distress. Speech is of regular rate and rhythm. The patient is cognitively oriented. Psychomotor activity is within normal limits. There are no abnormal motor movements or tics observed. Gait and station are not observed. The patient is sitting in bed for the course of the inpatient consult. Mood is "okay." Affect is cooperative overall for the purposes of the inpatient consult, perhaps mildly restricted. There is no behavioral or stated evidence of acute suicidal or homicidal ideation or acute psychotic, delusional, or paranoid symptoms. Thought processes are organized. There are no manic symptoms or loose associations evident. Judgement and insight appear unimpaired at this point in time. Motivation for help appears good. VITAL SIGNS: 107/60, 80, 18, and 98 degrees. IMPRESSION: Hydro I: 1. Depression, not otherwise specified, F32.9. 2. Rule out major depressive disorder. Hydro II: None. Hydro III: Status post Wellbutrin and ibuprofen overdose. Hydro IV: Moderate to severe. Hydro V: 60 to 65. PLAN: 1. Recommend that one-to-one be discontinued as the patient does not appear to be acute danger to herself or others at this point in time. 2. Continue medical treatment plan as currently ordered by the patient's inpatient medical treatment team. 3. Recommend that when the patient is medically stabilized that she may be discharged back to the community in the company of her and family, as she appears to be psychiatrically stable, not a danger to herself or others in the family. It is reported there are no weapons in the house, and the patient is denying any acute suicidality or suicidality at all going forward. 4. Recommend that the patient follow up with her outpatient primary MD to assess her overall function and efficacy of her previously prescribed psychiatric medication regimen. 5. We will continue to follow up with the patient on an as-needed basis while she remains on inpatient med/surg unit at [facility] in [place], [place]. 6. We will follow up with patient sooner if there are any complications in the interim. 7. If the patient has any breakthrough symptoms of depression or anxiety going forward, recommend that she follow up with outpatient psychiatry if the patient's primary MD does not feel comfortable further managing her antidepressant medication regimen. 8. Crisis plan is in place. /[id number] SPENCER/ANTONIO STORM
[2017-08-22] MEDS ORDERED: Escitalopram 10 MG Tab PO SCH (09:00)
== END 2017-08-21 12:48 | disposition home or self-care (01) ==
LOC: FB.ED 15:04 → FB.ICU 16:34
PROVIDERS: ADMIT Family Medicine; ATTEND Family Medicine
DX: T39.312A Poisoning by propionic acid derivatives, intentional self-harm, initial encounter (principal); T43.292A Poisoning by other antidepressants, intentional self-harm, initial encounter; F32.9 Major depressive disorder, single episode, unspecified; Z79.899 Other long term (current) drug therapy
CPT/HCPCS: 36415; 80048; 80053; 80305-QW; 81001; 84443; 84702; 85025; 87086; 87088; 93005; 96360; 99284; A9270-GY; G0425; G0480; J2405; J7030; J7050; Q3014-GT

== ENCOUNTER 2017-10-17 20:07 | Emergency (ER) | payer SELFPAY ==
[2017-10-17 20:17] VITALS: BP 105/72
--- NOTE | 2017-10-17 20:34 | EDM.PDOC ---
ED HPI GENERAL MEDICAL PROBLEM - General Chief Complaint: Headache Stated Complaint: MIGRAINE Time Seen by Provider: 10/17/17 20:10 Source of Information: Reports: Patient History Limitations: Reports: No Limitations - History of Present Illness INITIAL COMMENTS - FREE TEXT/NARRATIVE: Paula is a 36-year-old woman who complains of all day headache for the last 3 days . States she has migraine started this morning, at its worse 10 out 10. She asked 4 times stating that she "needed hydrocodone for her headache" .... "That is the only thing that works for me." She has used Rx from Dr. Bunny Frances the past and inderal "has not helped." Her chart documents that she has overdosed on bupropion in the past. She's not use ergot alkaloids. She denies visual problems but she notes "I have had chronic headaches," deniesparesis,e sensory changes, or visual changes: teichopsia, scintillating scotoma, fortification ocular symptoms, or field changes. She is a 2 para 2001. Previous hysterectomy. Does not have menstrual cycles. Onset Date: 10/14/17 Location: Reports: Head Quality: Reports: Pressure Severity: Moderate Improves with: Reports: Medication, Other (only medicienthat works for me is hydrocodone and I am out of hydrocodone) Associated Symptoms: Reports: Headaches Treatments TABULATING CLERK: Reports: Other (see below) (none) - Related Data Allergies Allergy/AdvReac Type Severity Reaction Status Date / Time No Known Allergies Allergy Verified 10/17/17 20:14 Home Meds: Home Meds buPROPion HCl [Wellbutrin Xl] 300 mg PO DAILY 08/21/17 [History] Past Medical History - Past Health History Medical/Surgical History: Denies Medical/Surgical History [employer] SU[employer] WORKER History: Reports: Fibroids, , Other (See Below) 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 Psychiatric History: Reports: Depression - Infectious Disease History Infectious Disease History: Reports: None - Past Surgical History Female Surgical History: Reports: Hysterectomy Social & Family History - Family History Family Medical History: Noncontributory - Caffeine Use Caffeine Use: Reports: None ED ROS GENERAL - Review of Systems Review Of Systems: See Below Constitutional: Reports: No Symptoms HEENT: Reports: No Symptoms Respiratory: Reports: No Symptoms Cardiovascular: Reports: No Symptoms Endocrine: Reports: No Symptoms GI/Abdominal: Reports: No Symptoms : Reports: No Symptoms Musculoskeletal: Reports: No Symptoms Skin: Reports: No Symptoms Neurological: Reports: Headache Psychiatric: Reports: No Symptoms Hematologic/Lymphatic: Reports: No Symptoms Immunologic: Reports: No Symptoms - Physical Exam Exam: See Below Text/Narrative:: Patient was lying on her side. She got up and was in tears. And as she started talking her tears wento away. And then she stood up. And I examined her. She did not seem to be in much distress when I examined her. She was insistent that she needed hydrocodone for her headache Exam Limited By: No Limitations General Appearance: Alert, Mild Distress Eye Exam: Bilateral Eye: Other (normal eye exam no pinpoint pupils, the pupil do react ot light) Ears: Normal External Exam, Normal Canal, Hearing Grossly Normal, Normal TMs Nose: Normal Inspection Throat/Mouth: Normal Inspection, Normal Lips, Normal Teeth, Normal Gums, Normal Oropharynx, Normal Voice, No Airway Compromise Neck: Normal Inspection, Supple, Non-Tender Respiratory/Chest: No Respiratory Distress, Lungs Clear, Normal Breath Sounds, No Accessory Muscle Use, Chest Non-Tender Cardiovascular: Normal Peripheral Pulses, Regular Rate, Rhythm, No Gallop, No JVD, No Murmur, No Rub GI/Abdominal: Normal Bowel Sounds, Soft, Non-Tender, No Organomegaly, No Distention, No Mass (Female) Exam: Deferred Rectal (Female) Exam: Deferred Neuro Exam (Abbreviated): Alert, Oriented, CN II-XII Intact, Normal Cognition, Normal Gait, Normal Reflexes, No Motor/Sensory Deficits DTR: 1+: Bicep (R), Bicep (L), Achilles (R), Achilles (L) Extremities: Normal Inspection, Normal Range of Motion, Non-Tender, No Pedal Edema Psychiatric: Other (Her tears quickly changed to a somber response as I told her I would not be prescribing narcotics ) Course - Vital Signs Last Recorded V/S: Last Vital Signs Temp 36.7 C 10/17/17 20:15 Pulse 80 10/17/17 20:15 Resp 17 10/17/17 20:15 BP 105/72 10/17/17 20:15 Pulse Ox 99 10/17/17 20:15 Departure - Departure Time of Disposition: 20:18 Disposition: Eloped 07 Condition: Good Clinical Impression: Headache Qualifiers: Headache type: unspecified Headache chronicity pattern: acute headache Intractability: not intractable Qualified Code(s): R51 - Headache - Discharge Information *PRESCRIPTION DRUG MONITORING PROGRAM REVIEWED*: No *COPY OF PRESCRIPTION DRUG MONITORING REPORT IN PATIENT DOROTHEA: No Referrals: Asad Contreras MD [Primary Care Provider] - Additional Instructions: with in 3 minutes of my leaving the room the eye was informed by registration that the patient had eloped
== END 2017-10-17 20:25 | disposition left against medical advice (07) ==
LOC: FB.ED 20:07
DX: R51 Headache (principal); Z79.899 Other long term (current) drug therapy
CPT/HCPCS: 99282

== ENCOUNTER 2017-11-16 17:31 | Emergency (ER) | payer SELFPAY ==
[2017-11-16 17:50] VITALS: BP 102/65
== END 2017-11-16 18:30 | disposition left against medical advice (07) ==
LOC: FB.ED 17:31
DX: Z53.21 Procedure and treatment not carried out due to patient leaving prior to being seen by health care provider (principal)
CPT/HCPCS: 99281

== ENCOUNTER 2019-10-06 20:38 | Emergency (ER) | payer SELFPAY ==
--- NOTE | 2019-10-06 21:20 | EDM.PDOC ---
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 last seen by her barrel scraper 2 months ago states she has not taken medications for 2 months since she moved was supposed to be taking metoprolol Onset: Today Onset Date: 10/06/19 Duration: Hour(s):, Intermittent Location: Reports: Back (upper thoracic back) Quality: Reports: Dull (in the left side of her neck) Severity: Mild Improves with: Reports: Heat Therapy Worsens with: Reports: Movement Associated Symptoms: Reports: No Other Symptoms L anterior chest & L neck/shoulder pain Pain Score (Numeric/FACES): 8 - Related Data Allergies Allergy/AdvReac Type Severity Reaction Status Date / Time No Known Allergies Allergy Verified 10/06/19 21:53 Home Meds: Home Meds Ibuprofen 800 mg PO DAILY 11/16/17 [History] Cyclobenzaprine [Flexeril] 10 mg PO TID PRN #20 tab 10/06/19 [Rx] Past Medical History - Past Health History Medical/Surgical History: Denies Medical/Surgical History [employer] WORKER History: Reports: Fibroids, , Other (See Below) Other [employer] WORKER History: hysterectomy Neurological History: Reports: Migraines Psychiatric History: Reports: Depression Other Psychiatric History: record show that patient has a hx of med overdose. Dermatologic History: Reports: None - Infectious Disease History Infectious Disease History: Reports: None - Past Surgical History Female Surgical History: Reports: Hysterectomy Neurological Surgical History: Reports: None Social & Family History - Family History Family Medical History: Noncontributory - Caffeine Use Caffeine Use: Reports: Coffee ED ROS GENERAL - Review of Systems Review Of Systems: See Below Constitutional: Reports: No Symptoms HEENT: Reports: No Symptoms Respiratory: Reports: No Symptoms Cardiovascular: Reports: No Symptoms Endocrine: Reports: No Symptoms GI/Abdominal: Reports: No Symptoms Musculoskeletal: Reports: Neck Pain (in left lateral neck). Denies: Shoulder Pain, Hand Pain, Muscle Pain, Muscle Stiffness Skin: Reports: No Symptoms Neurological: Reports: Dizziness ED EXAM, ANIMAL BITE - Physical Exam Exam: See Below Exam Limited By: Uncooperative General Appearance: Alert, WD/WN, No Apparent Distress Eye Exam: Bilateral Eye: EOMI Ears: Normal External Exam Nose: Normal Inspection Throat/Mouth: Normal Inspection Head: Atraumatic, Other Neck: Supple, Non-Tender Respiratory/Chest: No Respiratory Distress, Lungs Clear Cardiovascular: Normal Peripheral Pulses, Regular Rate, Rhythm, No Gallop, No JVD. No: Gallop/S3 GI/Abdominal: Soft, Non-Tender Neurological: Alert, Oriented, CN II-XII Intact Psychiatric: Normal Affect Skin Exam: Normal Color Course - Vital Signs Last Recorded V/S: Last Vital Signs Temp 36.8 C 10/06/19 21:05 Pulse 78 10/06/19 21:05 Resp 18 10/06/19 21:05 BP 110/78 10/06/19 21:05 Pulse Ox 100 10/06/19 21:05 - Orders/Labs/Meds Orders: Active Orders 24 hr Category Date Time Status EKG Documentation Completion [RC] ASDIRECTED Care 10/06/19 21:19 Active Chest 2V [CR] Stat Exams 10/06/19 21:18 Taken IRON AND TIBC Stat Lab 10/06/19 21:20 Received Acetaminophen/HYDROcodone [[place] 325-5 MG] Med 10/06/19 23:05 Once 1 tab PO ONETIME ONE EKG 12 Lead [EK] Routine Ther 10/06/19 21:19 Ordered Medication Orders Hydrocodone Bitart/Acetaminophen ([place] 325-5 Mg) 1 tab PO ONETIME ONE Stop: 10/06/19 23:06 Labs: Laboratory Tests 10/06/19 10/06/19 10/06/19 Range/Units 21:20 21:20 21:20 WBC 6.1 (4.5-12.0) X10-3/uL RBC 4.62 (3.23-5.20) x10(6)uL Hgb 13.5 (11.5-15.5) g/dL Hct 42.4 (30.0-51.3) % MCV 91.6 (80-96) fL MCH 29.2 (27.7-33.6) pg MCHC 31.9 L (32.2-35.4) g/dL RDW 13.4 (11.5-15.5) % Plt Count 272 (125-369) X10(3)uL Sodium 141 (135-145) mmol/L Potassium 3.6 (3.5-5.3) mmol/L Chloride 104 (100-110) mmol/L Carbon Dioxide 30 (21-32) mmol/L BUN 19 H (7-18) mg/dL Creatinine 0.7 (0.55-1.02) mg/dL Est Cr Clr Drug Dosing 79.04 mL/min Estimated GFR (MDRD) > 60 (>60) BUN/Creatinine Ratio 27.1 H (9-20) Glucose 81 (80-116) mg/dL Calcium 8.3 L (8.6-10.2) mg/dL Magnesium 2.0 (1.8-2.5) mg/dL Total Bilirubin 0.2 (0.1-1.3) mg/dL AST 16 D (5-25) IU/L ALT 21 D (12-36) U/L Alkaline Phosphatase 81 (56-112) IU/L Troponin I (4.0-60.3) pg/mL NT-Pro-B Natriuret Pep (<=125) pg/mL Total Protein 7.3 (6.0-8.0) g/dL Albumin 3.7 (3.5-5.2) g/dL Globulin 3.6 g/dL Albumin/Globulin Ratio 1.0 TSH, Ultra Sensitive (0.36-3.74) IU/mL 10/06/19 Range/Units 21:20 WBC (4.5-12.0) X10-3/uL RBC (3.23-5.20) x10(6)uL Hgb (11.5-15.5) g/dL Hct (30.0-51.3) % MCV (80-96) fL MCH (27.7-33.6) pg MCHC (32.2-35.4) g/dL RDW (11.5-15.5) % Plt Count (125-369) X10(3)uL Sodium (135-145) mmol/L Potassium (3.5-5.3) mmol/L Chloride (100-110) mmol/L Carbon Dioxide (21-32) mmol/L BUN (7-18) mg/dL Creatinine (0.55-1.02) mg/dL Est Cr Clr Drug Dosing mL/min Estimated GFR (MDRD) (>60) BUN/Creatinine Ratio (9-20) Glucose (80-116) mg/dL Calcium (8.6-10.2) mg/dL Magnesium (1.8-2.5) mg/dL Total Bilirubin (0.1-1.3) mg/dL AST (5-25) IU/L ALT (12-36) U/L Alkaline Phosphatase (56-112) IU/L Troponin I 6.1 (4.0-60.3) pg/mL NT-Pro-B Natriuret Pep 103 (<=125) pg/mL Total Protein (6.0-8.0) g/dL Albumin (3.5-5.2) g/dL Globulin g/dL Albumin/Globulin Ratio TSH, Ultra Sensitive 1.84 (0.36-3.74) IU/mL Meds: Medications Generic Name Dose Route Start Last Admin Trade Name Freq PRN Reason Stop Dose Admin Hydrocodone Bitart/Acetaminophen 1 tab 10/06/19 23:05 [place] 325-5 Mg PO 10/06/19 23:06 ONETIME ONE Discontinued Medications Generic Name Dose Route Start Last Admin Trade Name Freq PRN Reason Stop Dose Admin Cyclobenzaprine HCl 10 mg 10/06/19 22:13 10/06/19 22:23 Flexeril PO 10/06/19 22:14 10 mg ONETIME ONE Administration - Re-Assessments/Exams Free Text/Narrative Re-Assessment/Exam: 10/06/19 23:14 pt had EKG , labs and chest Xray done Lab review done and all are WNL pt given flexeril for neck muscle spasm and pain given [place] ( pt requested for it) Departure - Departure Time of Disposition: 23:15 Disposition: Home, Self-Care 01 Clinical Impression: Muscle spasms of neck, Neck pain on left side, Atypical chest pain - Discharge Information *COPY OF PRESCRIPTION DRUG MONITORING REPORT IN PATIENT DOROTHEA: Not Applicable Prescriptions: Cyclobenzaprine [Flexeril] 10 mg PO TID PRN #20 tab PRN Reason: Muscle Spasm Instructions: Cyclobenzaprine tablets Referrals: Asad Contreras MD [Primary Care Provider] - Forms: ED Department Discharge Additional Instructions: 1) Warm compress to the area of the neck with pain 3 times daily for 10 days 2) If pain persists will nee do see your doctor Sepsis Event Note (ED) - Focused Exam Vital Signs: Vital Signs Temp Pulse Resp BP Pulse Ox 10/06/19 21:05 36.8 C 78 18 110/78 100 - My Orders Last 24 Hours: My Active Orders 10/06/19 21:18 Chest 2V [CR] Stat 10/06/19 21:19 EKG Documentation Completion [RC] ASDIRECTED EKG 12 Lead [EK] Routine 10/06/19 21:20 IRON AND TIBC Stat 10/06/19 23:05 Acetaminophen/HYDROcodone [[place] 325-5 MG] 1 tab PO ONETIME ONE - Assessment/Plan Last 24 Hours: My Active Orders 10/06/19 21:18 Chest 2V [CR] Stat 10/06/19 21:19 EKG Documentation Completion [RC] ASDIRECTED EKG 12 Lead [EK] Routine 10/06/19 21:20 IRON AND TIBC Stat 10/06/19 23:05 Acetaminophen/HYDROcodone [[place] 325-5 MG] 1 tab PO ONETIME ONE
[2019-10-06] MEDS ORDERED: Cyclobenzaprine 10 MG Tab PO ONE (22:13)
[2019-10-06] MEDS ORDERED: Acetaminophen/HYDROcodone 325-5 MG Tab PO ONE (23:05)
[2019-10-06 23:21] VITALS: BP 105/79; PULSE 74
[2019-10-08 08:10] LABS: IRON BIND.CAP.(TIBC) 311 ug/dL (250-450); IRON SATURATION 22 % (15-55); IRON, SERUM 68 ug/dL (27-159); UIBC 243 ug/dL (131-425)
--- NOTE | 2019-10-08 08:23 | CR ---
INDICATION: Chest pain. CHEST: PA and two lateral views of the chest were obtained 10/06/19 and revealed a unipolar pacemaker in place with its tip in the area of the coronary sinus. Overlying EKG leads are noted. Heart is normal in size and shape with no specific mediastinal abnormality. An active infiltrate or effusion was not identified. IMPRESSION: No acute process. MTDD
== END 2019-10-06 23:23 | disposition home or self-care (01) ==
LOC: FB.ED 20:38
DX: R07.89 Other chest pain (principal); M62.838 Other muscle spasm
CPT/HCPCS: 36415; 71046; 80053; 83540; 83550; 83735; 83880; 84443; 84484; 85027; 93005; 99285; A9270